=== PATIENT | female | born 1955 | race Caucasian/White ===

== ENCOUNTER 2016-08-22 13:56 | Emergency (ER) | payer OTHER ==
[~2016-08-22] VITALS: Ht 160 cm; Wt 70.8 kg
--- NOTE | ~2016-08-22 | EKG ---
[place] [address] [facility] [employer] [place] [address] ELECTROCARDIOGRAM REPORT Name: MARIAJOSE JOYCE Room #: DEP Breana#: [id number] Admission: 08/22/16 Attend Phys: Discharge: 08/22/16 Date of : 51 Report #: [id number] THIS REPORT FOR: //name// [facility] ED Test Date: 2016-08-22 Test Time: 14:45:02 Pat Name: MARIAJOSE JOYCE Department: Room: Gender: F [employer]: [employer] : 1955 Requested By: Jose Ireland Order Number: [id number] MD: Jose Hinton Measurements Intervals [place] Rate: 86 P: 55 [place]: 172 QRS: -46 QRSD: 94 T: 73 QT: 387 QTc: 463 Interpretive Statements Sinus rhythm Probable left atrial enlargement Left anterior fascicular block Nonspecific T abnormalities, anterior leads No previous ECG available for comparison Electronically Signed On 08-22-2016 16:47:07 [employer] by Jose Hinton [email or web address] <ELECTRONICALLY SIGNED> By: Jose Hinton MD 08/22/16 1647 [id number] 1445 MD GABBIE Ford
[~2016-08-22 13:56] MED LIST: AMBEREN; ASPIRIN EC81 M1; BUTALB-APAP-CA1 EACH PO; COZAAR 50 MG TA50 M2 PO; DILTIAZEM ER240 M1; HYDROXYZINE HCL25 M1; HYDROXYZINE HCL25 M1 PO; MAXZIDE-25 MG1 EACH PO; NORCO 5-325 TA1 EACH PO; PRAVACHOL40 MG PO; SYNTHROID175 MCG PO; TRICOR145 MG PO; TRILIPIX135 MG; ZOCOR 20 MG TAB20 M1
[2016-08-22] MEDS ORDERED: VENTOLIN HFA 1818 GM INH (14:15)
[2016-08-22 14:32] LABS: ABSOLUTE NEUTROPHILS 5.6 thou/uL (1.4-8.2); EOSINOPHILS 7.5 % (0.0-3.0); HEMATOCRIT 42.8 % (37.0-47.0); HEMOGLOBIN 14.5 gm/dL (12.0-15.0); LYMPHOCYTES 23.2 % (24.0-44.0); MANUAL DIFF NO; MCH 29.4 pg (26.0-34.0); MCHC 33.7 % (28.0-37.0); MCV 87.1 fL (80.0-100.0); MONOCYTES 7.8 % (1.0-8.0); PLATELET COUNT 232 thou/uL (150-400); POLYS 60.5 % (36.0-66.0); RBC 4.92 mil/uL (4.20-5.00); RDW 13.4 % (10.5-14.5); WBC 9.4 thou/uL (4.0-11.0)
[2016-08-22 14:44] LABS: ANION GAP 6 mmol/L (7-16); BUN 16 mg/dL (7-18); CHLORIDE 103 mmol/L (98-107); CO2 30 mmol/L (21-32); GLUCOSE 102 mg/dL (70-99); POTASSIUM 4.1 mmol/L (3.5-5.1); SODIUM 139 mmol/L (136-145)
[2016-08-22 14:56] LABS: ALBUMIN 3.9 g/dL (3.4-5.0); ALKALINE PHOSPHATASE 56 U/L (46-116); NT-PRO BRAIN NAT PEPTIDE 33 pg/mL (<300); SGOT 18 U/L (15-37); SGPT 38 U/L (30-65); TOTAL BILIRUBIN 0.5 mg/dL (<0.1-1.0); TROPONIN-I < 0.04 ng/mL (<0.04-0.07)
[2016-08-22] MEDS ORDERED: PREDNISONE 10 M10 M1 PO (16:11)
[2016-08-22] MEDS ORDERED: GUAIFEN-CODEIN120 ML PO (16:14)
[2016-08-22 16:18] VITALS: BP 146/96
== END 2016-08-22 16:22 | disposition home or self-care (01) ==
LOC: ER 13:56
PROVIDERS: Emergency Medicine
DX: J45.998 Other asthma (principal); I10 Essential (primary) hypertension; E78.5 Hyperlipidemia, unspecified; Z90.49 Acquired absence of other specified parts of digestive tract; Z98.890 Other specified postprocedural states; Z88.8 Allergy status to other drugs, medicaments and biological substances

== ENCOUNTER 2017-10-21 19:26 | Emergency (ER) | payer OTHER ==
[~2017-10-21] VITALS: Ht 160 cm; Wt 68.0 kg
[~2017-10-21 19:26] MED LIST changes: +ADVAIR 500-501 EACH INH; +GUAIFEN-CODEIN120 ML PO; +IBUPROFEN 600600 M1 PO; +PREDNISONE 10 M10 M1 PO; +SINGULAIR 10 MG10 M1 PO; +ULTRAM 50MG TAB50 MG PO; +VENTOLIN HFA 1818 GM INH
[2017-10-21 21:09] LABS: ABSOLUTE NEUTROPHILS 5.2 thou/uL (1.4-8.2); BASOPHILS 1.5 % (0.0-2.0); EOSINOPHILS 5.2 % (0.0-3.0); HEMATOCRIT 42.1 % (37.0-47.0); HEMOGLOBIN 14.2 gm/dL (12.0-15.0); MCH 29.4 pg (26.0-34.0); MCHC 33.8 g/dL (28.0-37.0); MCV 87.1 fL (80.0-100.0); MONOCYTES 9.6 % (1.0-8.0); PLATELET COUNT 278 thou/uL (150-400); POLYS 57.7 % (36.0-66.0); RBC 4.83 mil/uL (4.20-5.00); RDW 13.9 % (10.5-14.5); WBC 9.1 thou/uL (4.0-11.0)
[2017-10-21 21:24] LABS: CALCIUM 10.1 mg/dL (8.5-10.1); CREATININE 1.1 mg/dL (0.6-1.0); POTASSIUM 3.9 mmol/L (3.5-5.1)
[2017-10-21 21:48] LABS: URINE BILIRUBIN NEGATIVE (Negative); URINE BLOOD NEGATIVE (Negative); URINE CLARITY SL CLOUDY; URINE COLOR YELLOW; URINE GLUCOSE-RANDOM* NEGATIVE (Negative); URINE KETONES NEGATIVE (Negative); URINE PROTEIN (DIPSTICK) NEGATIVE (Negative); URINE SPECIFIC GRAVITY >= 1.030 (1.005-1.035); URINE UROBILINOGEN 0.2 E.U./dl (0.2-1.0)
[2017-10-21 21:50] LABS: URINE LEUKOCYTES-REFLEX TRACE (Negative); URINE NITRITE-REFLEX POSITIVE (Negative)
[2017-10-21 21:59] LABS: BACTERIA-REFLEX >30 Many /HPF (None Seen); CASTS None Seen /LPF (None Seen); CRYSTALS None Seen /LPF (None Seen); MUCUS 0-3 Light strn/LPF (None Seen); SQUAMOUS 0-3 Few /LPF (0-3); URINE RBC 0-2 Rare /HPF (0-2)
[2017-10-21] MEDS ORDERED: KEFLEX500 M1 PO (22:15)
[2017-10-21] MEDS ORDERED: DIFLUCAN200 MG PO (22:15)
[2018-04-13] MEDS ORDERED: PHENAZOPYRIDIN200 M2 PO (21:37)
[2018-04-13] MEDS ORDERED: CIPRO500 MG PO (21:37)
== END 2017-10-21 22:50 | disposition home or self-care (01) ==
LOC: ER 19:26
PROVIDERS: Physician Assistant
DX: N39.0 Urinary tract infection, site not specified (principal); I10 Essential (primary) hypertension; E78.5 Hyperlipidemia, unspecified; J45.909 Unspecified asthma, uncomplicated; Z90.49 Acquired absence of other specified parts of digestive tract; Z88.6 Allergy status to analgesic agent

== ENCOUNTER 2018-03-06 12:55 | Emergency (ER) | payer OTHER ==
[~2018-03-06] VITALS: Ht 157.5 cm; Wt 68.5 kg
[~2018-03-06 12:55] MED LIST changes: +DIFLUCAN200 MG PO; +KEFLEX500 M1 PO
[2018-03-06 13:28] LABS: URINE BILIRUBIN NEGATIVE (Negative); URINE BLOOD NEGATIVE (Negative); URINE CLARITY CLEAR; URINE COLOR YELLOW; URINE GLUCOSE-RANDOM* NEGATIVE (Negative); URINE KETONES NEGATIVE (Negative); URINE NITRITE-REFLEX NEGATIVE (Negative); URINE PROTEIN (DIPSTICK) NEGATIVE (Negative); URINE UROBILINOGEN 0.2 E.U./dl (0.2-1.0)
[2018-03-06 13:29] LABS: URINE LEUKOCYTES-REFLEX 1+ (Negative)
[2018-03-06 13:41] LABS: CASTS None Seen /LPF (None Seen); CRYSTALS None Seen /LPF (None Seen); SQUAMOUS 0-3 Few /LPF (0-3); URINE RBC None Seen /HPF (0-2); URINE WBC-REFLEX >25 Many /HPF (0-5)
[2018-03-06 13:42] LABS: BACTERIA-REFLEX 1-9 Few /HPF (None Seen)
[2018-03-06] MEDS ORDERED: PHENAZOPYRIDIN200 M2 PO (13:51)
[2018-03-06] MEDS ORDERED: ZYRTEC10 M5 PO (13:52)
[2018-03-06] MEDS ORDERED: PYRIDIUM100 M1 PO (13:56)
[2018-03-06] MEDS ORDERED: CIPROFLOXACIN500 M1 PO (13:56)
[2018-03-06 14:15] VITALS: BP 121/67
== END 2018-03-06 14:16 | disposition home or self-care (01) ==
LOC: ER 12:55
PROVIDERS: Emergency Medicine
DX: N39.0 Urinary tract infection, site not specified (principal); I10 Essential (primary) hypertension; E78.5 Hyperlipidemia, unspecified; J45.909 Unspecified asthma, uncomplicated; Z90.49 Acquired absence of other specified parts of digestive tract; Z88.8 Allergy status to other drugs, medicaments and biological substances

== ENCOUNTER → 2018-12-12 | Outpatient (CLI) | payer OTHER ==
[~2018-12-12] MED LIST changes: +CIPRO500 MG PO; +CIPROFLOXACIN500 M1 PO; +PHENAZOPYRIDIN200 M2 PO; +PYRIDIUM100 M1 PO; +ZYRTEC10 M5 PO
== END ==
LOC: CAT 09:49
DX: Z13.6 Encounter for screening for cardiovascular disorders (principal); I25.10 Atherosclerotic heart disease of native coronary artery without angina pectoris; E78.00 Pure hypercholesterolemia, unspecified

== ENCOUNTER 2019-03-25 18:51 | Emergency (ER) | payer OTHER ==
[~2019-03-25] VITALS: Ht 160 cm; Wt 69.8 kg
[2019-03-25 19:15] LABS: URINE BILIRUBIN NEGATIVE (Negative); URINE BLOOD NEGATIVE (Negative); URINE CLARITY CLEAR; URINE COLOR YELLOW; URINE GLUCOSE-RANDOM* NEGATIVE (Negative); URINE KETONES NEGATIVE (Negative); URINE NITRITE-REFLEX NEGATIVE (Negative); URINE PROTEIN (DIPSTICK) NEGATIVE (Negative); URINE SPECIFIC GRAVITY 1.025 (1.005-1.035); URINE UROBILINOGEN 0.2 E.U./dl (0.2-1.0)
[2019-03-25 19:19] LABS: URINE LEUKOCYTES-REFLEX 1+ (Negative)
[2019-03-25 19:33] LABS: CASTS None Seen /LPF (None Seen); MUCUS >6 Heavy strn/LPF (None Seen); SQUAMOUS 0-3 Few /LPF (0-3)
[2019-03-25 19:34] LABS: BACTERIA-REFLEX >30 Many /HPF (None Seen); CRYSTALS None Seen /LPF (None Seen); URINE RBC None Seen /HPF (0-2)
[2019-03-25] MEDS ORDERED: BACTRIM DS TAB1 EACH PO (20:09)
== END 2019-03-25 20:35 | disposition home or self-care (01) ==
LOC: ER 18:51
PROVIDERS: Emergency Medicine
DX: N39.0 Urinary tract infection, site not specified (principal); I10 Essential (primary) hypertension; E78.5 Hyperlipidemia, unspecified; J45.909 Unspecified asthma, uncomplicated; Z90.49 Acquired absence of other specified parts of digestive tract; Z88.8 Allergy status to other drugs, medicaments and biological substances; Z90.89 Acquired absence of other organs

== ENCOUNTER 2019-07-15 21:19 | Emergency (ER) | payer OTHER ==
[~2019-07-15 21:19] MED LIST changes: +BACTRIM DS TAB1 EACH PO
[2019-07-15 21:21] VITALS: BP 125/72
[2019-07-15] MEDS ORDERED: PROMETH-CODEIN 65 ML PO (22:18)
[2019-07-15] MEDS ORDERED: DOXYCYCLINE 10100 MG PO (22:18)
[2019-07-15] MEDS ORDERED: PREDNISONE 20 M20 MG PO (22:23)
== END 2019-07-15 22:50 | disposition home or self-care (01) ==
LOC: ER 21:19
DX: R05 Cough (principal); J45.909 Unspecified asthma, uncomplicated; I10 Essential (primary) hypertension; E78.5 Hyperlipidemia, unspecified; M81.0 Age-related osteoporosis without current pathological fracture; Z88.8 Allergy status to other drugs, medicaments and biological substances; Z79.82 Long term (current) use of aspirin; Z79.899 Other long term (current) drug therapy; Z98.51 Tubal ligation status

== ENCOUNTER 2020-04-09 15:20 | Emergency (ER) | payer OTHER ==
[~2020-04-09] VITALS: Ht 160 cm; Wt 68.0 kg
[~2020-04-09 15:20] MED LIST changes: +DOXYCYCLINE 10100 MG PO; +PREDNISONE 20 M20 MG PO; +PROMETH-CODEIN 65 ML PO
[2020-04-09] MEDS ORDERED: TRAMADOL 50 MG50 MG PO (15:53)
[2020-04-09] MEDS ORDERED: NAPROSYN500 MG PO (15:53)
[2020-04-09 17:19] VITALS: BP 117/66
== END 2020-04-09 17:23 | disposition home or self-care (01) ==
LOC: ER 15:20
DX: S93.402A Sprain of unspecified ligament of left ankle, initial encounter (principal); I10 Essential (primary) hypertension; E78.5 Hyperlipidemia, unspecified; J45.909 Unspecified asthma, uncomplicated; Z90.49 Acquired absence of other specified parts of digestive tract; Z90.89 Acquired absence of other organs; Z98.51 Tubal ligation status; Z79.2 Long term (current) use of antibiotics; Z79.899 Other long term (current) drug therapy; Z79.82 Long term (current) use of aspirin; Z88.8 Allergy status to other drugs, medicaments and biological substances; W18.09XA Striking against other object with subsequent fall, initial encounter; Y93.89 Activity, other specified; Y92.098 Other place in other non-institutional residence as the place of occurrence of the external cause; Y99.8 Other external cause status